=== PATIENT | male | born 1975 | race Caucasian/White ===

== ENCOUNTER 2019-12-14 00:47 | Emergency (ER) | payer SELFPAY ==
[~2019-12-14] VITALS: Ht 154.9 cm; Wt 65.8 kg
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
[2019-12-14] MEDS ORDERED: TDAP [DIPH/PERTUSSIS/TET] 0.5 ML VIAL IM ONE ×2 (00:57→01:00)
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
--- NOTE | 2019-12-14 03:10 | NUR ---
PT BACK FROM RADIOLOGY
--- NOTE | 2019-12-14 05:22 | NUR ---
Patient discharged to home in stable condition. Written and verbal after care instructions given. Patient verbalizes understanding of instruction.IV removed. Catheter intact and site benign. Pressure and 4x4 applied to site. No bleeding noted.
[2019-12-14 05:23] VITALS: BP 128/74
== END 2019-12-14 05:23 | disposition home or self-care (01) ==
LOC: ER 00:53
DX: S62.002A Unspecified fracture of navicular [scaphoid] bone of left wrist, initial encounter for closed fracture (principal); S00.83XA Contusion of other part of head, initial encounter; S60.311A Abrasion of right thumb, initial encounter; F10.129 Alcohol abuse with intoxication, unspecified; R51 Headache; Y90.9 Presence of alcohol in blood, level not specified; V49.49XA Driver injured in collision with other motor vehicles in traffic accident, initial encounter; Y93.89 Activity, other specified; Y92.488 Other paved roadways as the place of occurrence of the external cause; Y99.8 Other external cause status
CPT/HCPCS: 70486-TC; 73110; 73200-TC; 90715